=== PATIENT | female | born 1930 | race Caucasian/White ===

== ENCOUNTER 2019-08-14 17:55 | Emergency (ER) | payer MEDICARE ==
[2019-08-14 20:48] LABS: ABS Basophils 0.1 10^3/ul (0-0.2); ABS Lymphocytes 1.1 10^3/ul (1.0-4.8); ABS Monocytes 0.7 10^3/ul (0-0.8); Eosinophil % 0.3 %; Hematocrit 39 % (35-47); Hemoglobin 13.6 g/dL (12.0-16.0); Lymphocyte % 11.1 %; Mean Corpuscular HGB Conc 35 g/dL (31-36); Mean Corpuscular Hemoglobin 32 pg (27-31); Mean Corpuscular Volume 92 fL (80-97); Mean Platelet Volume 8.2 fL (7.4-10.4); Platelet Count 214 10^3/uL (150-450); Red Blood Count 4.23 10^6 /uL (3.70-4.87); Red Cell Distribution Width 14 % (10-15); White Blood Count 9.8 10^3/uL (3.5-10.8)
[2019-08-14 21:10] LABS: Albumin/Globulin Ratio 1.3 (1-3); BUN/Creatinine Ratio 15.4 (8-20); Calcium 9.3 mg/dL (8.6-10.3); EGFR African American 70.8 (>60); EGFR Non-African American 58.5 (>60); Globulin 3.1 g/dL (2-4); Potassium 3.7 mmol/L (3.5-5.0); Total Bilirubin 0.8 mg/dL (0.2-1.0); Total Protein 7.1 g/dL (6.4-8.9)
--- NOTE | 2019-08-14 23:54 | ED ---
Complex/Multi-Sys Presentation - HPI Summary HPI Summary: The patient is an 89 y/o female presenting to [facility] with a chief complaint of one episode of nausea and vomiting at 0600 this morning. She reports that after she woke up this morning she felt nausea and vomited once accompanied by diffuse abdominal pain. The symptoms resolved after a few minutes, but she was concerned for having contracted the flu, so she went to [facility]. While there, she had an EKG and was recommended to come to the ED for a repeat EKG. She also had a UA which they said was negative. She denies any chest pain or shortness of breath, although she has been hypertensive with BP of 200/90 mmHg in triage. She is not experiencing any pain.She is not currently on BP medications as she does not have a PCP. PMHx: bilateral cataract surgery. Nonsmoker, no EtOH, no substance use. Medications reviewed. Allergies noted. - History Of Current Complaint Chief Complaint: EDWeakness Time Seen by Provider: 08/14/19 23:03 Hx Obtained From: Patient Onset/Duration: Sudden Onset, Lasting Minutes, Resolved Timing: Minutes Severity Currently: None Severity Initially: Moderate Aggravating Factor(s): nothing Alleviating Factor(s): spontaneous resolution Associated Signs And Symptoms: Positive: Nausea, Vomiting, Abdominal Pain. Negative: SOB, Chest Pain - Allergies/Home Medications Allergies/Adverse Reactions: Allergies Allergy/AdvReac Type Severity Reaction Status Date / Time No Known Allergies Allergy Verified 08/15/19 00:34 PMH/Surg Hx/FS Hx/Imm Hx Endocrine/Hematology History: Denies: Hx Diabetes, Hx Thyroid Disease Cardiovascular History: Denies: Hx Hypertension Respiratory History: Denies: Hx Asthma, Hx Chronic Obstructive Pulmonary Disease (COPD) GI History: Denies: Hx Ulcer Musculoskeletal History: Denies: Hx Rheumatoid Arthritis, Hx Osteoporosis - Surgical History Surgical History: Yes Surgery Procedure, Year, and Place: BILAT EYE CATARACT SURGERY Infectious Disease History: No Infectious Disease History: Reports: Hx Shingles Denies: Hx Hepatitis, Hx Human Immunodeficiency Virus (HIV), Traveled Outside the [place] in Last 30 Days - Family History Known Family History: Positive: Other Family History: daughter with MS - Social History Alcohol Use: None Hx Substance Use: No Substance Use Type: Reports: None Hx Tobacco Use: No Smoking Status (MU): Never Smoked Tobacco Review of Systems Negative: Chest Pain Negative: Shortness Of Breath Positive: Abdominal Pain - with episode of vomiting, Vomiting - one episode, Nausea - resolved, lasted a few minutes Negative: Weakness All Other Systems Reviewed And Are Negative: Yes Physical Exam - Summary Physical Exam Summary: Constitutional: Well-developed, Well-nourished, Alert. (-) Distressed Skin: Warm, Dry HENT: Normocephalic; Atraumatic Eyes: Conjunctiva normal Neck: Musculoskeletal ROM normal neck. (-) JVD, (-) Stridor, (-) Tracheal deviation Cardio: Rhythm regular, rate normal, Heart sounds normal; Intact distal pulses; The pedal pulses are 2+ and symmetric. Radial pulses are 2+ and symmetric. Pulmonary/Chest wall: Effort normal. (-) Respiratory distress, (-) Wheezes, (-) Rales Abd: Soft, (-) tenderness, (-) Distension, (-) Guarding, (-) Rebound Musculoskeletal: (-) Edema Neuro: Alert, Oriented x3 Psych: Mood and affect Normal Triage Information Reviewed: Yes Vital Signs On Initial Exam: Initial Vitals Temp Pulse Resp BP Pulse Ox 98.0 F 74 19 200/90 96 08/14/19 18:26 08/14/19 18:26 08/14/19 18:26 08/14/19 18:26 08/14/19 18:26 Vital Signs Reviewed: Yes Procedures - Sedation Patient Received Moderate/Deep Sedation with Procedure: No Diagnostics - Vital Signs Vital Signs Temp Pulse Resp BP Pulse Ox 08/14/19 20:41 98.3 F 77 16 160/72 98 08/14/19 18:26 98.0 F 74 19 200/90 96 - Laboratory Lab Results: Lab Results 08/14/19 08/14/19 Range/Units 20:32 20:32 WBC 9.8 (3.5-10.8) 10^3/uL RBC 4.23 (3.70-4.87) 10^6 /uL Hgb 13.6 (12.0-16.0) g/dL Hct 39 (35-47) % MCV 92 (80-97) fL MCH 32 H (27-31) pg MCHC 35 (31-36) g/dL RDW 14 (10-15) % Plt Count 214 (150-450) 10^3/uL MPV 8.2 (7.4-10.4) fL Neut % (Auto) 81.2 % Lymph % (Auto) 11.1 % [place] % (Auto) 6.8 % Eos % (Auto) 0.3 % Baso % (Auto) 0.6 % Absolute Neuts (auto) 8.0 H (1.5-7.7) 10^3/ul Absolute Lymphs (auto) 1.1 (1.0-4.8) 10^3/ul Absolute Monos (auto) 0.7 (0-0.8) 10^3/ul Absolute Eos (auto) 0.0 (0-0.6) 10^3/ul Absolute Basos (auto) 0.1 (0-0.2) 10^3/ul Absolute Nucleated RBC 0.0 10^3/ul Nucleated RBC % 0.0 Sodium 137 (135-145) mmol/L Potassium 3.7 (3.5-5.0) mmol/L Chloride 104 (101-111) mmol/L Carbon Dioxide 24 (22-32) mmol/L Anion Gap 9 (2-11) mmol/L BUN 14 (6-24) mg/dL Creatinine 0.91 (0.51-0.95) mg/dL Est GFR ( Amer) 70.8 (>60) Est GFR (Non-Af Amer) 58.5 (>60) BUN/Creatinine Ratio 15.4 (8-20) Glucose 125 H (70-100) mg/dL Calcium 9.3 (8.6-10.3) mg/dL Total Bilirubin 0.80 (0.2-1.0) mg/dL AST 15 (13-39) U/L ALT 23 (7-52) U/L Alkaline Phosphatase 103 (34-104) U/L Total Protein 7.1 (6.4-8.9) g/dL Albumin 4.0 (3.2-5.2) g/dL Globulin 3.1 (2-4) g/dL Albumin/Globulin Ratio 1.3 (1-3) Result Diagrams: 08/14/19 20:32 08/14/19 20:32 Lab Statement: Any lab studies that have been ordered have been reviewed, and results considered in the medical decision making process. - Radiology CXR Radiology Interpretation Completed By: ED Physician Summary of Radiographic Findings: No focal consolidation. ED physician has reviewed and interpreted this report. Pending official read. - EKG 2252 Cardiac Rate: NL - 72 BPM EKG Rhythm: Sinus Rhythm Summary of EKG Findings: An EKG at 2253 reveals normal sinus rhythm at 72 BPM, prolonged QTc at 484, nonspecific T wave abnormalities, no STEMI, no prior for comparison. ED physician has reviewed and interpreted this EKG. Re-Evaluation - Re-Evaluation First Eval Re-Evaluation Time: 23:40 Change: Improved Comment: BP improved to 170/70 mmHg, will palce on Keflex for one week for UTI, d/c plan discussed, patient agrees Complex Multi-Symp Course/Dx Course Of Treatment: Patient is an 89 y/o female presenting with an acute episode of nausea and vomiting at 0600 with recommendation to come to the ED by [facility] for a repeat EKG. She denies any chest pain or shortness of breath despite being hypertensive at this time. No current antihypertensives. Physical exam is negative for acute findings. Labs without significant abnormality relating to cc. UA is likely consistent with UTI revealing 1+ protein, 2+ ketones, 1+ blood, leukocyte esterase, and 2+ WBCs. Influenza A and B negative. An EKG at 2253 reveals normal sinus rhythm at 72 BPM, prolonged QTc at 484, nonspecific T wave abnormalities, no STEMI, no prior for comparison. CXR reveals no focal consolidation. Patient administered Keflex for UTI treatment, will be given rx for one week. Blood pressure has improved to 170/70 mmHg from 200/90 mmHg in triage. Patient safe for discharge. Patient is agreeable with plan. - Diagnoses Provider Diagnoses: UTI (urinary tract infection) Discharge ED - Sign-Out/Discharge Documenting (check all that apply): Patient Departure - Patient will be discharged home. - Discharge Plan Condition: Stable Disposition: HOME Prescriptions: Cephalexin CAP* [Keflex CAP*] 500 mg PO QID 7 Days #20 cap Patient Education Materials: Urinary Tract Infection in Women (ED) Referrals: [facility] [Outside] - 3 Days Additional Instructions: Please take medication as prescribed. We have given you a referral to find a primary care provider. Return to the emergency department for any new or worsening symptoms. - Attestation Statements Document Initiated by Scribe: Yes Documenting Scribe: Amrita Bosch Provider For Whom Scribe is Documenting (Include Credential): Dr. Renny López MD Scribe Attestation: Amrita Alexander, scribed for Dr. Renny López MD on 08/15/19 at 1447. Status of Scribe Document: Ready
[2019-08-15 00:43] LABS: Influenza A Molecular NEGATIVE (Negative); Influenza B Molecular NEGATIVE (Negative)
[2019-08-15 01:09] LABS: Urine Appearance Clear; Urine Bilirubin Negative (Negative); Urine Blood 1+ (Negative); Urine Color Amber; Urine Glucose Negative (Negative); Urine Ketones 2+ (Negative); Urine Nitrite Negative (Negative); Urine Protein 1+(30 mg/dL) (Negative); Urine Specific Gravity 1.031 (1.010-1.030); Urine Urobilinogen Negative (Negative)
[2019-08-15 01:16] LABS: Urine Bacteria Absent (Absent); Urine Red Blood Cell Trace(0-2/hpf) (Absent); Urine Squamous Epithelial Cell Present (Absent); Urine White Blood Cell 2+(11-20/hpf) (Absent)
[2019-08-15] MEDS ORDERED: Cephalexin CAP* 500 MG PO ONE (01:45)
[2019-08-15 02:07] VITALS: BP 187/81
== END 2019-08-15 02:05 | disposition home or self-care (01) ==
LOC: ED 17:55
DX: N39.0 Urinary tract infection, site not specified (principal)
CPT/HCPCS: 36415; 71046; 80053; 81003; 81015; 85025; 87086; 93005; 99284; A9270-GY